=== PATIENT | male | born 1995 | race African-American/Black ===

== ENCOUNTER 2021-11-08 16:57 | Emergency (ER) | payer SELFPAY ==
[~2021-11-08] VITALS: Ht 170.2 cm; Wt 56.7 kg
[2021-11-08 17:01] VITALS: BP 123/86
[2021-11-08] MEDS ORDERED: ACET-2605 PO (17:38)
--- NOTE | 2021-11-08 17:49 | NUR ---
Patient discharged to home in stable condition. Written and verbal after care instructions given. Patient verbalizes understanding of instruction.
== END 2021-11-08 17:50 | disposition home or self-care (01) ==
LOC: ER 17:03
DX: S09.90XA Unspecified injury of head, initial encounter (principal); V43.52XA Car driver injured in collision with other type car in traffic accident, initial encounter; Y93.89 Activity, other specified; Y92.410 Unspecified street and highway as the place of occurrence of the external cause; Y99.8 Other external cause status